=== PATIENT | female | born 1960 | race Caucasian/White ===

== ENCOUNTER → 2023-10-25 06:35 | Outpatient (REF) | payer OTHER, SELFPAY | LOC: HWWDC 06:35 | PROVIDERS: ATTENDING PHYSICIAN Obstetrics & Gynecology; FAMILY PHYSICIAN Internal Medicine | DX: Z12.31 Encounter for screening mammogram for malignant neoplasm of breast (principal) | CPT/HCPCS: 77063; 77067 ==

== ENCOUNTER 2023-12-29 12:38 | Emergency (ER) | payer OTHER, MEDICARE, SELFPAY ==
[2023-12-29 12:41] VITALS: BP 170/92
[2023-12-29 13:36] VITALS: BMI 24.1
--- NOTE | 2023-12-29 14:05 | ED.GENMED ---
History of Present Illness
General
Chief Complaint: Musculo-Skeletal Complaint
Source: patient
Exam Limitations: none
Time Seen by Provider: 12/29/23 14:03
History of Present Illness
History of Present Illness:
See MDM
Past History
Past History
ED Past Medical History: Other ('Migraines' for which she usually takes Ibuprofen)
ED Past Surgical History: None
Social History
Tobacco: Non-smoker
Personal:
Living: with family
Phy Exam
Physical Exam
Physical Exam:
See MDM
Course
Orders/Labs/Results
Orders:
Orders
12/29/23 14:08
Pelvis, 1 or 2 Views CR [CR Pelvis - 1 Or 2 Views ] Urgent
Comment:
Reason For Exam: R posterior buttock pain after fall
Vital Signs
Initial and Last Documented VS:
Initial Vital Signs
Temp Pulse Resp BP Pulse Ox
98.8 F 84 17 170/92 97
12/29/23 12:41 12/29/23 12:41 12/29/23 12:41 12/29/23 12:41 12/29/23 12:41
Last Documented Vital Signs
Temp Pulse Resp BP Pulse Ox
98.8 F 84 17 170/92 97
12/29/23 12:41 12/29/23 12:41 12/29/23 12:41 12/29/23 12:41 12/29/23 12:41
MDM/Problems Addressed
Differential Diagnosis Includes:
HPI and MDM Narrative:
63-year-old female presenting with right buttock pain. Patient was lifting something heavy and she slipped and fell backwards. Patient has bruising to her right buttock. She denies any pain or trouble hip flexing her hip extending. Patient
wanted to make sure she did not have any fracture
On exam, there is bruising to her right buttock along the right ischium. Will obtain x-ray to rule out fracture. No clinical evidence of hamstring injury
Physical exam
General: Well appearing and non-toxic
HEENT: protecting airway
Neck: appears supple
CV: No evidence of cyanosis
Resp: No accessory muscle use
Abd: Non-distended
Back: Bruising and tenderness to right ischium.
Extremities: No deformities. Right hamstring intact
Neuro: alert
Psych: Normal affect
Skin: Intact
Problems Addressed including Acute and Chronic Conditions affecting care:
1. Pelvic injury
Acuity: acute
Prognosis: stable
Details: No evidence of muscle or tendon or ligament involvement. Will obtain x-ray to rule out fracture
Updates
X-ray negative for fracture. Discussed return precautions
Differential Diagnosis (but not limited to): Contusion, ischial fracture
Testing considered: Sacral x-ray
Drug therapy (if applicable): OTC meds, please see d/c instruction regarding Rx drugs
Amount and/or Complexity of Data Reviewed
Clinical info obtained from: Patient
External data reviewed: N/A
Labs I independently reviewed (but not limited to): N/A
Radiology: X-ray independently reviewed: Pelvic x-ray negative for fracture
Pulse Ox: not hypoxic
EKG independently reviewed: N/A
Farm Operations Technical Director: N/A
Critical Care: N/A
Risk of Complication:
Social Determinants of health: Good social support
Discussed with other providers: N/A
Escalation of Care includes Admit/Obs: After being observed in the Emergency Department, pt stable for discharge.
Occasional wrong word or 'sound a like' substitutions may have occurred due to the inherent limitations of voice recognition software. Read the chart carefully and recognize, using context, where substitutions have occurred.
*Critical Care Note
Total Time (30-74mins, 75-104mins- exclusive of procedures): Not Applicable
ED Attending Note
-
Portions of this chart may have been created with voice recognition software.� Occasional wrong word or��sound alike� substitutions may have occurred due to the inherent limitations of voice recognition software.
Discharge Plan
Departure
Patient Disposition: Home (Routine Discharge)
Date of Disposition: 12/29/23
Time of Disposition: 15:04
Patient with high blood pressure during this ER visit?: Yes
Discharge Problem:
Contusion of buttock
Instructions: BLOOD PRESSURE
Referrals:
Albin Valdovinos MD [Family Provider] -
Activity Restrictions/Additional Instructions:
Please return for any worsening symptoms.
You may return at any time if you have further concerns.
Please follow up with your doctor.
Thank you for choosing [facility].
Interventions
Interventions:
*Risk Screen - Suicide Last Done: 12/29/23 13:36
*General Assessment Last Done: 12/29/23 13:36
*Neglect/Abuse Screening Last Done: 12/29/23 13:36
ED- Fall Risk Assessment Last Done: 12/29/23 13:36
*ED COVID-19 Vaccine History Last Done: 12/29/23 13:36
ED-Musculoskeletal Assessment Last Done: 12/29/23 13:36
Discharge Date and Time
Print Language: [id number]
== END 2023-12-29 15:11 | disposition home or self-care (01) ==
LOC: EMR 12:38
PROVIDERS: EMERGENCY PHYSICIAN Student in an Organized Health Care Education/Training Program; FAMILY PHYSICIAN Internal Medicine
DX: S30.0XXA Contusion of lower back and pelvis, initial encounter (principal); W01.0XXA Fall on same level from slipping, tripping and stumbling without subsequent striking against object, initial encounter; R03.0 Elevated blood-pressure reading, without diagnosis of hypertension
CPT/HCPCS: 99283; 72170

== ENCOUNTER → 2024-04-17 09:02 | Outpatient (REF) | payer MEDICARE, SELFPAY | LOC: HWRAD 09:02 | PROVIDERS: ATTENDING PHYSICIAN Obstetrics & Gynecology; FAMILY PHYSICIAN Nurse Practitioner | DX: Z78.0 Asymptomatic menopausal state (principal) | CPT/HCPCS: 77080 ==

== ENCOUNTER → 2025-03-15 07:17 | Outpatient (REF) | payer MEDICARE, SELFPAY | LOC: HWWDC 07:17 | PROVIDERS: ATTENDING PHYSICIAN Obstetrics & Gynecology; FAMILY PHYSICIAN Nurse Practitioner | DX: Z12.31 Encounter for screening mammogram for malignant neoplasm of breast (principal) | CPT/HCPCS: 77063; 77067 ==